=== PATIENT | male | born 1945 | race Caucasian/White ===

== ENCOUNTER → 2020-04-06 | Outpatient (CLI) | payer MEDICARE | END | disposition home or self-care (01) | LOC: CVU 08:37 | PROVIDERS: ATTEND Internal Medicine Cardiovascular Disease | DX: I35.8 Other nonrheumatic aortic valve disorders (principal); I48.91 Unspecified atrial fibrillation; I10 Essential (primary) hypertension | CPT/HCPCS: 93306 ==

== ENCOUNTER 2020-05-09 13:08 | Outpatient (CLI) | payer MEDICARE ==
[2020-05-09] MEDS ORDERED: FLEC100T PO (14:05)
[2020-05-09] MEDS ORDERED: LOSA25TA25 PO (14:06)
[2020-05-13] MEDS ORDERED: PANT40TA5 PO (10:41)
[2020-05-13] MEDS ORDERED: ZINC30TA2 PO (10:53)
[2020-05-13] MEDS ORDERED: CHOL10003 PO (10:53)
[2020-05-13] MEDS ORDERED: S-AD200T PO (10:53)
[2020-05-13] MEDS ORDERED: OMEP-110 PO (10:53)
[2020-05-13] MEDS ORDERED: VITA1CAP7 PO (10:53)
[2020-05-14] MEDS ORDERED: COLC0.6C3 PO (09:47)
[2020-05-14] MEDS ORDERED: APIX5TAB PO (09:47)
== END 2020-05-09 23:59 | disposition home or self-care (01) ==
LOC: STAR 13:08
PROVIDERS: ATTEND Internal Medicine Cardiovascular Disease
DX: Z01.818 Encounter for other preprocedural examination (principal); I48.91 Unspecified atrial fibrillation; Z88.0 Allergy status to penicillin
CPT/HCPCS: 36415; 71046; 80053; 85025

== ENCOUNTER → 2020-05-10 | Outpatient (CLI) | payer MEDICARE ==
[~2020-05-10] MED LIST: FLEC100T PO; LOSA25TA25 PO; OMNIPAQUE 350 MG/ML, 150 ML BOTTLE ONE
== END | disposition home or self-care (01) ==
LOC: CFH 10:03
PROVIDERS: ATTEND Internal Medicine Cardiovascular Disease
DX: I48.91 Unspecified atrial fibrillation (principal); K76.9 Liver disease, unspecified
CPT/HCPCS: 75572; Q9967

== ENCOUNTER → 2020-06-15 | Outpatient (CLI) | payer MEDICARE ==
[~2020-06-15] MED LIST changes: +APIX5TAB PO; +CHOL10003 PO; +COLC0.6C3 PO; +OMEP-110 PO; -OMNIPAQUE 350 MG/ML, 150 ML BOTTLE ONE; +PANT40TA5 PO; +S-AD200T PO; +VITA1CAP7 PO; +ZINC30TA2 PO
== END | disposition home or self-care (01) ==
LOC: CVU 15:33
PROVIDERS: ATTEND Internal Medicine Cardiovascular Disease
DX: I08.8 Other rheumatic multiple valve diseases (principal); I11.9 Hypertensive heart disease without heart failure; I48.91 Unspecified atrial fibrillation
CPT/HCPCS: 93306

== ENCOUNTER 2021-08-15 10:23 | Outpatient (CLI) | payer MEDICARE ==
[~2021-08-15 10:23] MED LIST changes: -PANT40TA5 PO; +PANT40TA6 PO
[2021-08-15] MEDS ORDERED: OMNIPAQUE 350 MG/ML, 100ML BOTTLE ONE (11:23)
== END 2021-08-15 23:59 | disposition home or self-care (01) ==
LOC: CFH 10:23
PROVIDERS: ATTEND Internal Medicine Gastroenterology
DX: N20.0 Calculus of kidney (principal); K76.89 Other specified diseases of liver; R10.13 Epigastric pain
CPT/HCPCS: 74160; 82565; Q9967